=== PATIENT | female | born 1965 | race Caucasian/White ===

== ENCOUNTER → 2021-01-20 | Day surgery (SDC) | payer OTHER ==
[~2021-01-20] VITALS: Ht 160 cm; Wt 89.0 kg
[~2021-01-20] MED LIST: ALBUTEROL SULFATE 2.5 MG/0.5 ML NEB SOLUTION NEB ONE; BENZOCAINE 20% 50 MCG/SPRAY 57 GM TP ONE; FLUT16H NASAL; FentaNYL CITRATE PF 100 MCG/2 ML VIAL ONE; GLIM4 PO; HYDR25TA2 PO; LIDOCAINE 2% 30 ML JELLY TP ONE; LOSA50TA37 PO; MIDAZOLAM HCL 5 MG/ML VIAL ONE; MONT-35 PO; MethylPREDNISolone SOD SUCC 125 MG/2 ML VIAL IVP ONE; MethylPREDNISolone SOD SUCC 125 MG/2 ML VIAL ONE; OXYGEN THERAPY IH SCH; PREG50 PO; SODIUM CHLORIDE 0.9% 1,000 ML IV ONE; SODIUM CHLORIDE 0.9% 1,000 ML ONE; SPIR-37 PO
[2021-01-20 06:56] LABS: COVID AG,FIA SOURCE NASOPHARYNGEAL
[2021-01-20 07:38] LABS: GLUCOMETER DEV NAME(LOC) SDS.; GLUCOSE,POINT OF CARE 113 MG/DL (70-110)
== END | disposition home or self-care (01) ==
LOC: SURGERY 06:22
PROVIDERS: ATTEND Internal Medicine Critical Care Medicine
DX: J38.4 Edema of larynx (principal); B37.0 Candidal stomatitis; E11.9 Type 2 diabetes mellitus without complications; D64.9 Anemia, unspecified; J44.9 Chronic obstructive pulmonary disease, unspecified; F17.210 Nicotine dependence, cigarettes, uncomplicated; Z79.899 Other long term (current) drug therapy; Z98.890 Other specified postprocedural states; Z91.040 Latex allergy status
CPT/HCPCS: 31623; 31624; 71045; 82962; 87015; 87070; 87101; 87205; 87206; 87220; 87426; 88108; 88184; 88185; 88312; C9803; J2250; J2930; J3010; J7030; J7613